=== PATIENT | female | born 1935 | race Hispanic/Latino ===

== ENCOUNTER → 2019-02-05 | Day surgery (SDC) | payer MEDICARE ==
--- NOTE | 2019-01-30 12:18 | Diagnostic Imaging Report ---
EXAM: CHEST 2 VIEWS, PA and lateral DATE: 01/30/2019 Time stamp on exam: 11:25 AM INDICATION: Preoperative COMPARISON: None FINDINGS: LINES/TUBES: None LUNGS: No consolidations or edema. PLEURA: No effusions or pneumothorax. Minimal thickening of the minor fissure. HEART AND MEDIASTINUM: Normal size and contour. Calcification and tortuosity of the thoracic aorta is noted. BONES AND SOFT TISSUES: No acute findings. Vertebroplasty cement within several thoracic spine vertebral bodies. IMPRESSION: No acute thoracic abnormality. Signed by: Dr. Sriram Sweet DO on 01/30/2019 12:14 PM
[~2019-02-05] MED LIST: ASPIR 8181 MG PO; BACTRIM DS TAB1 EACH PO; BUPIVACAINE HCL 0.5% INJ 30 ML VIAL INJ ONE; CEFAZOLIN SOD 1 GM/NS 50ML 50 ML IV ONE; CENTRUM SILVER1 EAC3 PO; CITRACAL + D E1 EACH PO; DESFLURANE 240 ML BTL INH ONE; EPHEDRINE SULFATE INJ 50 MG/10 ML SYR ONE; LATANOPROST2.5 ML OP; LIDOCAINE HCL 2% LOCAL INJ 5 ML SDV VIAL INJ ONE; MUPIROCIN 2% OINT 22 GM TUBE ONE; NITROFURANTOIN100 M1 PO; PROPOFOL IV EMULSION 10 MG/ML 20 ML VIAL ONE; VIT D PO; Z.0.ALENDRONATE SOD7 PO; Z.0.COLACE100 MG PO; Z.0.LISINOPRIL5 MG PO; Z.0.VICODIN HP TAB1 PO; [UNRECOGNIZED DRUG - CODE] PO
--- OUTSIDE RECORDS SUMMARY | 2019-02-05 05:19 | XMS REPORT ---
[facility] Address Unknown Phone Unavailable Care Team Providers Care Site Promotion Agent Name Role Phone MARY HARRELL Unavailable Unavailable Problems This patient has no known problems. Allergies, Adverse Reactions, Alerts This patient has no known allergies or adverse reactions. Medications This patient has no known medications. Results Test Description Test Time Test Comments Text Results Atomic Results Result Comments CHEST 2 VIEWS 2019-01-30 12:13:00 [place] [address] Patient Name: ROMMEL CHI MR #: [id number] : 1935 Age/Sex: 83/F Req #: [id number] [facility] Physician: Ordered by: MARY HARRELL MD Report #: [id number] Location: OR Room/Bed: Procedure: [id number] DX/CHEST 2 VIEWS Exam Date: 01/30/19 Exam Time: 1100 REPORT STATUS: Signed EXAM: CHEST 2 VIEWS, PA and lateral DATE: 01/30/2019 Time stamp on exam: 11:25 AM INDICATION: Preoperative COMPARISON: None FINDINGS: LINES/TUBES: None LUNGS: No consolidations or edema. PLEURA: No effusions or pneumothorax. Minimal thickening of the minor fissure. HEART AND MEDIASTINUM: Normal size and contour. Calcification and tortuosity of the thoracic aorta is noted. BONES AND SOFT TISSUES: No acute findings. Vertebroplasty cement within several thoracic spine vertebral bodies. IMPRESSION: No acute thoracic abnormality. Signed by: Dr. Earnest Sweet DO on 01/30/2019 12:14 PM Dictated By: EARNEST SWEET DO 1214 Transcribed By: ALECIA on 01/30/19 1214 COPY TO: MARY HARRELL MD
[2019-02-05 08:43] VITALS: BP 147/82
--- NOTE | 2019-02-05 15:40 | Operative Report ---
DATE OF PROCEDURE: 02/05/2019 SURGEON: Avni Tam MD PREOPERATIVE DIAGNOSIS: Right carpal tunnel syndrome. POSTOPERATIVE DIAGNOSES: 1. Right carpal tunnel syndrome. 2. Flexor tenosynovitis, right wrist. PROCEDURES: 1. Right open carpal tunnel release. 2. Flexor tenosynovectomy, right wrist. ANESTHESIA: General. HISTORY: The patient is an 83-year-old with EMG-proven right carpal tunnel syndrome. Risks, benefits and alternatives of treatment were discussed with the patient. The patient is prepared to undergo the procedure as outlined. DESCRIPTION OF PROCEDURE: The patient was brought to the operating theater. After the induction of adequate general inhalation anesthesia, the patient was prepped and draped in the supine position. A time out was performed by the entire operating room team. A 2.5 cm incision was marked out in the intrathenar space. The right upper extremity was exsanguinated, and a tourniquet was inflated to a pressure of 250 mmHg. The incision was made through the skin and subcutaneous tissues and all venous tributaries were controlled with bipolar cautery. The incision was deepened through the palmar fascia until the transverse carpal ligament was identified. The ligament was sharply sectioned, taking care to protect and preserve the median nerve underlying it. After the complete width of the ligament had been transected, the distal volar forearm fascia was divided under direct view. Proliferative flexor tenosynovium was noticed to encompass the median nerve and this was radically excised. After performing this maneuver, the nerve was noted to lie adequately decompressed. The wound was copiously irrigated with bacteriostatic saline, closed with 5-0 nylon in an interrupted horizontal mattress fashion. A Marcaine field block was performed at the operative site. Tourniquet was deflated. All of the fingers pinked up nicely and a sterile bulking conforming bandage was applied to the hand and the wrist. A fiberglass splint was fashioned to maintain the wrist in a modest amount of extension. This was held in place with a loosely wrapped Diego wrap. The patient tolerated the procedure well and was brought to the recovery room in satisfactory condition and discharged with a postoperative instruction sheet as well as a followup appointment. Avni Tam MD ER/MODL /[id number]
== END | disposition home or self-care (01) ==
LOC: OR 05:16
PROVIDERS: ATTEND Plastic Surgery
DX: M65.841 Other synovitis and tenosynovitis, right hand (principal); G56.01 Carpal tunnel syndrome, right upper limb; N28.9 Disorder of kidney and ureter, unspecified; Z01.818 Encounter for other preprocedural examination; Z79.82 Long term (current) use of aspirin
CPT/HCPCS: 25115; 71046; J0690; J2001; J2704

== ENCOUNTER → 2019-06-09 | Day surgery (SDC) | payer MEDICARE ==
[2019-06-02 15:55] LABS: BASOPHILS % 0.2 % (0.0-1.0); EOSINOPHILS # (AUTO) 0.1 (0.0-0.4); EOSINOPHILS % 1.2 % (0.0-6.0); HEMATOCRIT 37.6 % (34.2-44.1); HEMOGLOBIN 12.1 g/dL (12.0-16.0); LYMPHOCYTES # (AUTO) 2.6 (1.0-3.2); MEAN CORPUSCULAR HEMOGLOBIN 30.2 pg (28-32); MEAN CORPUSCULAR HGB CONC 32.2 g/dL (31-35); MEAN CORPUSCULAR VOLUME 93.8 fL (81-99); MONOCYTES # (AUTO) 0.8 (0.2-0.8); MONOCYTES % 9.2 % (4.4-11.3); NEUTROPHILS # (AUTO) 4.8 (2.1-6.9); NEUTROPHILS % 57.8 % (38.7-80.0); PLATELET COUNT 189 x10e3/uL (140-360); RED BLOOD COUNT 4.01 x10e6/uL (3.6-5.1); RED CELL DISTRIBUTION WIDTH 12.3 % (11.7-14.4)
[~2019-06-09] MED LIST changes: -DESFLURANE 240 ML BTL INH ONE; -EPHEDRINE SULFATE INJ 50 MG/10 ML SYR ONE; +FENTANYL CITRATE/PF 100MCG/2 ML INJ ONE; +ONDANSETRON HCL INJ 2MG/ML 2ML 2 MG/ML VIAL ONE; +PHENYLEPHRINE HCL 1% 10 MG/ML VIAL ONE; +SEVOFLURANE INHAL SOLN 250 ML PEN BTL ONE
[2019-06-09 08:30] VITALS: BP 160/80
--- NOTE | 2019-06-09 13:27 | Operative Report ---
DATE OF PROCEDURE: 06/09/2019 SURGEON: Avni Tam MD PREOPERATIVE DIAGNOSIS: Left carpal tunnel syndrome. POSTOPERATIVE DIAGNOSES: 1. Left carpal tunnel syndrome. 2. Flexor tenosynovitis left wrist. PROCEDURE: 1. Left open carpal tunnel release. 2. Flexor tenosynovectomy left wrist. ANESTHESIA: General. HISTORY: The patient is an 83-year-old with EMG-proven left carpal tunnel syndrome. Risks, benefits and alternatives of treatment were discussed with the patient. The patient is prepared to undergo the procedure as outlined. DESCRIPTION OF PROCEDURE: The patient was brought to the operating theater. After the induction of adequate general inhalation anesthesia, the patient was prepped and draped in the supine position. A time out was performed by the entire operating room team. A 2.5 cm incision was marked out in the intrathenar space. The left upper extremity was exsanguinated, and a tourniquet was inflated to a pressure of 250 mmHg. The incision was made through the skin and subcutaneous tissues and all venous tributaries were controlled with bipolar cautery. The incision was deepened through the palmar fascia until the transverse carpal ligament was identified. The ligament was sharply sectioned, taking care to protect and preserve the median nerve underlying it. After the complete width of the ligament had been transected, the distal volar forearm fascia was divided under direct view. Proliferative flexor tenosynovium was noticed to encompass the median nerve and this was radically excised. After performing this maneuver, the nerve was noted to lie adequately decompressed. The wound was copiously irrigated with bacteriostatic saline, closed with 5-0 nylon in an interrupted horizontal mattress fashion. A Marcaine field block was performed at the operative site. Tourniquet was deflated. All of the fingers pinked up nicely and a sterile bulking conforming bandage was applied to the hand and the wrist. A fiberglass splint was fashioned to maintain the wrist in a modest amount of extension. This was held in place with a loosely wrapped Diego wrap. The patient tolerated the procedure well and was brought to the recovery room in satisfactory condition and discharged with a postoperative instruction sheet as well as a followup appointment. Avni Tam MD ER/MODL /[id number]
== END | disposition home or self-care (01) ==
LOC: OR 05:00
PROVIDERS: ATTEND Plastic Surgery
DX: M65.832 Other synovitis and tenosynovitis, left forearm (principal); G56.02 Carpal tunnel syndrome, left upper limb; N28.9 Disorder of kidney and ureter, unspecified; Z01.810 Encounter for preprocedural cardiovascular examination; Z01.812 Encounter for preprocedural laboratory examination; Z79.82 Long term (current) use of aspirin
CPT/HCPCS: 25115; 36415; 85025; 93005; J0690; J2001; J2370; J2405; J2704; J3010